=== PATIENT | female | born 1955 | race Caucasian/White ===

== ENCOUNTER 2022-11-16 11:10 | Emergency (ER) | payer MEDICARE | END 2022-11-16 19:00 | disposition other institution (70) | LOC: JD.ED 11:10 | DX: R45.851 Suicidal ideations (principal); R41.82 Altered mental status, unspecified; Z86.59 Personal history of other mental and behavioral disorders | CPT/HCPCS: 99285 ==

== ENCOUNTER 2022-11-17 11:54 | Emergency (ER) | payer MEDICARE ==
[2022-11-17 14:40] LABS: CORONAVIRUS COVID-19 NAA NEGATIVE (NEGATIVE)
[2022-11-17] MEDS ORDERED: OLANZapine 5 MG Tab PO SCH (21:00)
[2022-11-18] MEDS ORDERED: DULoxetine 20 MG Cap PO SCH (09:45)
== END 2022-11-18 19:50 ==
LOC: JD.ED 11:54
DX: F20.89 Other schizophrenia (principal); Z20.822 Contact with and (suspected) exposure to COVID-19
CPT/HCPCS: 0241U; 36415; 80053; 80143; 80179; 80306; 80307; 84443; 85025; 93005; 99285; A9270; 99283

== ENCOUNTER 2022-11-21 08:32 | Inpatient (IN) | payer MEDICARE, MEDICAID ==
[2022-11-21] MEDS ORDERED: OLANZapine 10 MG Vial IM ONE ×2 (09:22→19:03)
[2022-11-21] MEDS ORDERED: LORazepam 2 MG/ML SDV IM ONE ×2 (09:22→19:04)
[2022-11-21 10:11] LABS: BASOPHILS ABSOLUTE AUTO 0.02 K/mm3 (0.01-0.08); BASOPHILS PERCENT AUTO 0.3 % (0.1-1.2); EOSINOPHILS ABSOLUTE AUTO 0.11 K/mm3 (0.04-0.36); EOSINOPHILS PERCENT AUTO 1.6 (0.7-5.8); HEMATOCRIT 42.7 % (34.1-44.9); HEMOGLOBIN 14.1 gm/dl (11.2-15.7); IMMATURE GRAN ABSOLUTE AUTO 0.02 K/mm3 (0.00-0.10); IMMATURE GRAN PERCENT AUTO 0.3 % (<=1.0); LYMPHOCYTES ABSOLUTE AUTO 1.77 K/mm3 (1.18-3.74); LYMPHOCYTES PERCENT AUTO 25.4 % (19.3-51.7); MEAN CORPUSCULAR HEMOGLOBIN 29.5 pg (25.6-32.2); MEAN CORPUSCULAR VOLUME 89.3 fl (79.4-94.8); MEAN PLATELET VOLUME 9.6 fl (9.4-12.3); MONOCYTES ABSOLUTE AUTO 0.76 K/mm3 (0.24-0.36); MONOCYTES PERCENT AUTO 10.9 % (4.7-12.5); NEUTROPHILS PERCENT AUTO 61.5 % (34.0-71.1); PLATELET COUNT,PLT 340 K/mm3 (182-369); RED BLOOD CELL COUNT 4.78 M/mm3 (3.98-5.22); WHITE BLOOD CELL COUNT,WBC 6.98 K/mm3 (3.98-10.04)
[2022-11-21 10:36] LABS: A/G RATIO 1.1 (1-2); ALANINE AMINOTRANSFERASE,ALT 28 U/L (14-59); ALBUMIN 3.5 g/dl (3.4-5.0); ALKALINE PHOSPHATASE 87 U/L (46-116); ANION GAP 13.3 (5-15); ASPARTATE AMNIOTRANSFERASE,AST 19 U/L (15-37); BILIRUBIN TOTAL 1.5 mg/dL (0.2-1.0); BLOOD UREA NITROGEN,BUN 22 mg/dL (7-18); C-REACTIVE PROTEIN <0.2 mg/dL (<1.0); CALCIUM 8.4 mg/dL (8.5-10.1); CARBON DIOXIDE,CO2 28 mEq/L (21-32); CHLORIDE,CL 104 mEq/L (98-107); ESTIMATED GFR 61 mL/min (>60); GLUCOSE RANDOM 109 mg/dL (70-99); MAGNESIUM 1.9 mg/dL (1.8-2.4); POTASSIUM,K 3.3 mEq/L (3.5-5.1); PROTEIN TOTAL,TP 6.7 g/dl (6.4-8.2); SODIUM,NA 142 mEq/L (136-145); TROPONIN I HIGH SENSITIVITY 14 pg/mL (<=51); TSH 2.649 uIU/mL (0.358-3.74)
[2022-11-21 10:38] LABS: ACETAMINOPHEN 0 ug/mL (10-30)
[2022-11-21 14:07] LABS: APPEARANCE,URINE CLEAR (Clear); BILIRUBIN,URINE NEGATIVE (Negative); COLOR,URINE YELLOW (Yellow); GLUCOSE,URINE NEGATIVE (Negative); KETONES,URINE NEGATIVE (Negative); LEUKOCYTE ESTERASE,URINE TRACE (Negative); NITRITE,URINE NEGATIVE (Negative); OCCULT BLOOD,URINE NEGATIVE (Negative); PROTEIN,URINE 1+ (Negative); UROBILINOGEN,URINE 0.2 (0.2-1.0)
[2022-11-21 14:19] LABS: BARBITURATE SCREEN,URINE NEGATIVE (CUTOFF=200); BENZODIAZEPINES SCREEN,URINE NEGATIVE (CUTOFF=150); BUPRENORPHINE SCREEN,URINE NEGATIVE (CUTOFF=10); METHADONE SCREEN, URINE NEGATIVE (CUTOFF=200); METHAMPHETAMINES SCREEN, URINE NEGATIVE (CUTOFF=500); OXYCODONE SCREEN,URINE NEGATIVE (CUT0FF=100); PROPOXYPHENE SCREEN,URINE NEGATIVE (CUTOFF=300); THC SCREEN,URINE 20 NG/ML NEGATIVE (CUTOFF=50)
[2022-11-21 14:22] LABS: BACTERIA,URINE MODERATE /hpf (FEW); HYALINE CASTS,URINE 0-5 /lpf (0-5); MUCUS,URINE MANY /hpf (FEW); RBC,URINE NOT SEEN /hpf (0-5); SQUAMOUS EPITHELIAL CELLS,UR 0-5 /hpf (0-5)
[2022-11-21 14:23] LABS: AMPHETAMINES SCREEN, URINE NEGATIVE (CUTOFF=500)
[2022-11-21] MEDS ORDERED: Cephalexin 500 MG Cap PO ONE (16:15)
[2022-11-22] MEDS: OLANZapine 5 MG Tab PO SCH ×3 (07:58→20:53)
[2022-11-22 09:08] LABS: CORONAVIRUS COVID-19 NAA NEGATIVE (NEGATIVE); INFLUENZA A NAA NEGATIVE (NEGATIVE); RESPIRATORY SYNCYTIAL VIR NAA NEGATIVE (NEGATIVE)
[2022-11-22] MEDS: ARIPiprazole 5 MG Tab PO SCH (09:35)
[2022-11-22] MEDS ORDERED: LORazepam 2 MG/ML SDV IV PRN (15:39)
[2022-11-22] MEDS ORDERED: Sodium Chloride 0.9% 10 ML Syringe FLUSH PRN (15:39)
[2022-11-22] MEDS ORDERED: Cephalexin 500 MG Cap PO SCH (18:00)
[2022-11-22] MEDS: Heparin Sodium 5,000 Units/ML Vial SUBCUT SCH (19:00)
[2022-11-22] MEDS ORDERED: OLANZapine 5 MG Tab PO SCH (21:00)
[2022-11-23] MEDS: Heparin Sodium 5,000 Units/ML Vial SUBCUT SCH ×3 (01:18→16:59)
[2022-11-23 06:39] LABS: BASOPHILS ABSOLUTE AUTO 0.03 K/mm3 (0.01-0.08); BASOPHILS PERCENT AUTO 0.4 % (0.1-1.2); EOSINOPHILS ABSOLUTE AUTO 0.17 K/mm3 (0.04-0.36); EOSINOPHILS PERCENT AUTO 2.3 (0.7-5.8); HEMATOCRIT 44.3 % (34.1-44.9); HEMOGLOBIN 14.9 gm/dl (11.2-15.7); IMMATURE GRAN ABSOLUTE AUTO 0.01 K/mm3 (0.00-0.10); IMMATURE GRAN PERCENT AUTO 0.1 % (<=1.0); LYMPHOCYTES ABSOLUTE AUTO 2.68 K/mm3 (1.18-3.74); LYMPHOCYTES PERCENT AUTO 36.4 % (19.3-51.7); MEAN CORPUSCULAR HEMOGLOBIN 30.1 pg (25.6-32.2); MEAN CORPUSCULAR HGB CONC 33.6 g/dl (32.2-35.5); MEAN CORPUSCULAR VOLUME 89.5 fl (79.4-94.8); MEAN PLATELET VOLUME 9.5 fl (9.4-12.3); MONOCYTES ABSOLUTE AUTO 0.85 K/mm3 (0.24-0.36); MONOCYTES PERCENT AUTO 11.5 % (4.7-12.5); NEUTROPHILS ABSOLUTE AUTO 3.62 K/mm3 (1.56-6.13); NEUTROPHILS PERCENT AUTO 49.3 % (34.0-71.1); PLATELET COUNT,PLT 350 K/mm3 (182-369); RED BLOOD CELL COUNT 4.95 M/mm3 (3.98-5.22); WHITE BLOOD CELL COUNT,WBC 7.36 K/mm3 (3.98-10.04)
[2022-11-23 07:20] LABS: ALBUMIN 3.4 g/dl (3.4-5.0); ANION GAP 13.7 (5-15); BILIRUBIN TOTAL 1.4 mg/dL (0.2-1.0); BUN/CREATININE RATIO 18.9 (14-18); CALCIUM 8.6 mg/dL (8.5-10.1); CREATININE 0.9 mg/dL (0.55-1.02); EST CRCL DRUG DOSING (CG) 47.32 mL/min; POTASSIUM,K 3.7 mEq/L (3.5-5.1); PROTEIN TOTAL,TP 6.7 g/dl (6.4-8.2)
[2022-11-23] MEDS: DULoxetine 30 MG Cap PO SCH (11:56)
[2022-11-23] MEDS: OLANZapine 5 MG Tab PO SCH ×2 (11:57→20:10)
[2022-11-23] MEDS: Cephalexin 500 MG Cap PO SCH ×4 (11:57→20:10)
[2022-11-23] MEDS: ARIPiprazole 5 MG Tab PO SCH (11:57)
[2022-11-24] MEDS: Heparin Sodium 5,000 Units/ML Vial SUBCUT SCH ×3 (00:26→16:09)
[2022-11-24 06:19] LABS: BASOPHILS ABSOLUTE AUTO 0.03 K/mm3 (0.01-0.08); BASOPHILS PERCENT AUTO 0.4 % (0.1-1.2); EOSINOPHILS PERCENT AUTO 1.5 (0.7-5.8); HEMATOCRIT 44.8 % (34.1-44.9); IMMATURE GRAN ABSOLUTE AUTO 0.02 K/mm3 (0.00-0.10); IMMATURE GRAN PERCENT AUTO 0.3 % (<=1.0); LYMPHOCYTES ABSOLUTE AUTO 2.44 K/mm3 (1.18-3.74); LYMPHOCYTES PERCENT AUTO 36.4 % (19.3-51.7); MEAN CORPUSCULAR HEMOGLOBIN 29.9 pg (25.6-32.2); MEAN CORPUSCULAR HGB CONC 33.5 g/dl (32.2-35.5); MEAN CORPUSCULAR VOLUME 89.2 fl (79.4-94.8); MEAN PLATELET VOLUME 9.6 fl (9.4-12.3); MONOCYTES ABSOLUTE AUTO 0.78 K/mm3 (0.24-0.36); MONOCYTES PERCENT AUTO 11.6 % (4.7-12.5); NEUTROPHILS ABSOLUTE AUTO 3.34 K/mm3 (1.56-6.13); NEUTROPHILS PERCENT AUTO 49.8 % (34.0-71.1); PLATELET COUNT,PLT 364 K/mm3 (182-369); RED BLOOD CELL COUNT 5.02 M/mm3 (3.98-5.22); WHITE BLOOD CELL COUNT,WBC 6.71 K/mm3 (3.98-10.04)
[2022-11-24 06:38] LABS: ANION GAP 12.8 (5-15); BUN/CREATININE RATIO 21.1 (14-18); CALCIUM 8.7 mg/dL (8.5-10.1); CREATININE 0.9 mg/dL (0.55-1.02); EST CRCL DRUG DOSING (CG) 47.32 mL/min; POTASSIUM,K 3.8 mEq/L (3.5-5.1)
[2022-11-24] MEDS: LORazepam 1 MG Tab PO PRN ×2 (07:43→16:19)
[2022-11-24] MEDS: ARIPiprazole 5 MG Tab PO SCH ×2 (07:43→08:13)
[2022-11-24] MEDS: DULoxetine 30 MG Cap PO SCH ×2 (07:43→08:13)
[2022-11-24] MEDS: Cephalexin 500 MG Cap PO SCH ×5 (07:43→20:40)
[2022-11-24] MEDS: OLANZapine 5 MG Tab PO SCH ×3 (07:43→20:40)
[2022-11-25] MEDS: Heparin Sodium 5,000 Units/ML Vial SUBCUT SCH ×3 (00:48→18:23)
[2022-11-25] MEDS: DULoxetine 30 MG Cap PO SCH (08:17)
[2022-11-25] MEDS: OLANZapine 5 MG Tab PO SCH ×2 (08:18→20:47)
[2022-11-25] MEDS: ARIPiprazole 5 MG Tab PO SCH (08:18)
[2022-11-25] MEDS: Cephalexin 500 MG Cap PO SCH ×2 (08:18→12:36)
[2022-11-26] MEDS: Heparin Sodium 5,000 Units/ML Vial SUBCUT SCH ×3 (00:52→16:12)
[2022-11-26] MEDS: ARIPiprazole 5 MG Tab PO SCH (08:16)
[2022-11-26] MEDS: OLANZapine 5 MG Tab PO SCH ×2 (08:16→20:18)
[2022-11-26] MEDS: DULoxetine 30 MG Cap PO SCH (08:16)
[2022-11-26] MEDS: Docusate Sodium 100 MG Cap PO SCH (20:18)
[2022-11-27] MEDS: Heparin Sodium 5,000 Units/ML Vial SUBCUT SCH ×3 (01:30→16:05)
[2022-11-27] MEDS: DULoxetine 30 MG Cap PO SCH (08:48)
[2022-11-27] MEDS: ARIPiprazole 5 MG Tab PO SCH (08:48)
[2022-11-27] MEDS: Docusate Sodium 100 MG Cap PO SCH ×3 (08:48→20:25)
[2022-11-27] MEDS: OLANZapine 5 MG Tab PO SCH ×3 (08:48→20:28)
[2022-11-28] MEDS: Heparin Sodium 5,000 Units/ML Vial SUBCUT SCH ×3 (01:13→16:07)
[2022-11-28] MEDS: ARIPiprazole 5 MG Tab PO SCH (08:02)
[2022-11-28] MEDS: OLANZapine 5 MG Tab PO SCH ×2 (08:02→20:47)
[2022-11-28] MEDS: DULoxetine 30 MG Cap PO SCH (08:02)
[2022-11-28] MEDS: Docusate Sodium 100 MG Cap PO SCH ×2 (08:03→20:47)
[2022-11-29] MEDS: Heparin Sodium 5,000 Units/ML Vial SUBCUT SCH ×4 (00:54→23:08)
[2022-11-29] MEDS: ARIPiprazole 5 MG Tab PO SCH (07:59)
[2022-11-29] MEDS: Docusate Sodium 100 MG Cap PO SCH ×2 (07:59→20:19)
[2022-11-29] MEDS: OLANZapine 5 MG Tab PO SCH ×2 (07:59→20:19)
[2022-11-29] MEDS: DULoxetine 30 MG Cap PO SCH (07:59)
[2022-11-29] MEDS: LORazepam 1 MG Tab PO PRN (11:27)
[2022-11-30] MEDS: Heparin Sodium 5,000 Units/ML Vial SUBCUT SCH ×3 (08:49→23:34)
[2022-11-30] MEDS: Docusate Sodium 100 MG Cap PO SCH ×2 (08:49→20:04)
[2022-11-30] MEDS: DULoxetine 30 MG Cap PO SCH (08:49)
[2022-11-30] MEDS: ARIPiprazole 5 MG Tab PO SCH (08:49)
[2022-11-30] MEDS: OLANZapine 5 MG Tab PO SCH ×2 (08:49→20:04)
[2022-12-01] MEDS: ARIPiprazole 5 MG Tab PO SCH (08:13)
[2022-12-01] MEDS: Heparin Sodium 5,000 Units/ML Vial SUBCUT SCH ×2 (08:13→17:11)
[2022-12-01] MEDS: OLANZapine 5 MG Tab PO SCH ×2 (08:13→20:45)
[2022-12-01] MEDS: Docusate Sodium 100 MG Cap PO SCH ×2 (08:14→20:45)
[2022-12-01] MEDS: DULoxetine 30 MG Cap PO SCH (08:14)
[2022-12-01] MEDS: LORazepam 1 MG Tab PO PRN ×2 (13:34→20:45)
[2022-12-02] MEDS: Heparin Sodium 5,000 Units/ML Vial SUBCUT SCH ×3 (00:35→15:50)
[2022-12-02] MEDS: DULoxetine 30 MG Cap PO SCH (08:54)
[2022-12-02] MEDS: ARIPiprazole 5 MG Tab PO SCH (08:54)
[2022-12-02] MEDS: OLANZapine 5 MG Tab PO SCH ×2 (08:54→20:48)
[2022-12-02] MEDS: Docusate Sodium 100 MG Cap PO SCH ×2 (08:54→20:49)
[2022-12-02] MEDS: LORazepam 1 MG Tab PO PRN (09:00)
[2022-12-03] MEDS: Heparin Sodium 5,000 Units/ML Vial SUBCUT SCH ×4 (00:59→23:45)
[2022-12-03] MEDS: LORazepam 1 MG Tab PO PRN ×2 (07:39→16:22)
[2022-12-03] MEDS: DULoxetine 30 MG Cap PO SCH (09:07)
[2022-12-03] MEDS: Docusate Sodium 100 MG Cap PO SCH ×2 (09:08→20:29)
[2022-12-03] MEDS: OLANZapine 5 MG Tab PO SCH ×2 (09:08→20:30)
[2022-12-03] MEDS: ARIPiprazole 5 MG Tab PO SCH (09:08)
[2022-12-04] MEDS: LORazepam 1 MG Tab PO PRN ×2 (07:11→13:01)
[2022-12-04] MEDS: OLANZapine 5 MG Tab PO SCH ×2 (08:12→20:14)
[2022-12-04] MEDS: DULoxetine 30 MG Cap PO SCH (08:12)
[2022-12-04] MEDS: Docusate Sodium 100 MG Cap PO SCH ×2 (08:12→20:14)
[2022-12-04] MEDS: ARIPiprazole 5 MG Tab PO SCH (08:12)
[2022-12-05] MEDS: LORazepam 1 MG Tab PO PRN ×2 (06:43→20:26)
[2022-12-05] MEDS: ARIPiprazole 5 MG Tab PO SCH (09:29)
[2022-12-05] MEDS: OLANZapine 5 MG Tab PO SCH ×2 (09:29→20:26)
[2022-12-05] MEDS: Enoxaparin 40 MG/0.4 ML Syringe SUBCUT SCH (09:30)
[2022-12-05] MEDS: Docusate Sodium 100 MG Cap PO SCH ×2 (09:30→20:26)
[2022-12-05] MEDS: DULoxetine 30 MG Cap PO SCH (09:30)
[2022-12-06] MEDS: LORazepam 1 MG Tab PO PRN ×2 (08:14→20:05)
[2022-12-06] MEDS: DULoxetine 30 MG Cap PO SCH (08:31)
[2022-12-06] MEDS: Enoxaparin 40 MG/0.4 ML Syringe SUBCUT SCH (08:31)
[2022-12-06] MEDS: OLANZapine 5 MG Tab PO SCH ×2 (08:31→20:05)
[2022-12-06] MEDS: ARIPiprazole 5 MG Tab PO SCH (08:31)
[2022-12-06] MEDS: Docusate Sodium 100 MG Cap PO SCH ×2 (08:31→20:05)
[2022-12-07] MEDS: OLANZapine 5 MG Tab PO SCH ×2 (08:00→20:00)
[2022-12-07] MEDS: DULoxetine 30 MG Cap PO SCH (08:00)
[2022-12-07] MEDS: ARIPiprazole 5 MG Tab PO SCH (08:01)
[2022-12-07] MEDS: Docusate Sodium 100 MG Cap PO SCH ×2 (08:01→20:00)
[2022-12-07] MEDS: Enoxaparin 40 MG/0.4 ML Syringe SUBCUT SCH (08:01)
[2022-12-07] MEDS: LORazepam 1 MG Tab PO PRN (20:00)
[2022-12-08] MEDS: DULoxetine 30 MG Cap PO SCH (09:05)
[2022-12-08] MEDS: Enoxaparin 40 MG/0.4 ML Syringe SUBCUT SCH (09:05)
[2022-12-08] MEDS: ARIPiprazole 5 MG Tab PO SCH (09:05)
[2022-12-08] MEDS: OLANZapine 5 MG Tab PO SCH ×2 (09:05→20:00)
[2022-12-08] MEDS: Docusate Sodium 100 MG Cap PO SCH ×2 (09:05→20:00)
[2022-12-08] MEDS: LORazepam 1 MG Tab PO PRN (22:51)
[2022-12-09] MEDS: ARIPiprazole 5 MG Tab PO SCH ×2 (07:49→08:22)
[2022-12-09] MEDS: Docusate Sodium 100 MG Cap PO SCH ×3 (07:49→20:50)
[2022-12-09] MEDS: OLANZapine 5 MG Tab PO SCH ×3 (07:49→20:50)
[2022-12-09] MEDS: DULoxetine 30 MG Cap PO SCH ×2 (07:49→08:23)
[2022-12-09] MEDS: Enoxaparin 40 MG/0.4 ML Syringe SUBCUT SCH ×2 (07:49→08:23)
[2022-12-10] MEDS: Docusate Sodium 100 MG Cap PO SCH ×2 (08:37→22:08)
[2022-12-10] MEDS: OLANZapine 5 MG Tab PO SCH ×2 (08:37→22:08)
[2022-12-10] MEDS: LORazepam 1 MG Tab PO PRN (08:37)
[2022-12-10] MEDS: DULoxetine 30 MG Cap PO SCH (08:37)
[2022-12-10] MEDS: ARIPiprazole 5 MG Tab PO SCH (08:37)
[2022-12-10] MEDS: Enoxaparin 40 MG/0.4 ML Syringe SUBCUT SCH (08:38)
[2022-12-11] MEDS: LORazepam 1 MG Tab PO PRN ×2 (07:38→19:28)
[2022-12-11] MEDS: DULoxetine 30 MG Cap PO SCH (09:21)
[2022-12-11] MEDS: Docusate Sodium 100 MG Cap PO SCH ×2 (09:21→20:05)
[2022-12-11] MEDS: OLANZapine 5 MG Tab PO SCH ×2 (09:21→20:05)
[2022-12-11] MEDS: Enoxaparin 40 MG/0.4 ML Syringe SUBCUT SCH (09:21)
[2022-12-11] MEDS: ARIPiprazole 5 MG Tab PO SCH (09:22)
[2022-12-12] MEDS: Docusate Sodium 100 MG Cap PO SCH ×2 (08:54→20:45)
[2022-12-12] MEDS: LORazepam 1 MG Tab PO PRN ×2 (08:54→21:00)
[2022-12-12] MEDS: OLANZapine 5 MG Tab PO SCH ×2 (08:54→20:45)
[2022-12-12] MEDS: DULoxetine 30 MG Cap PO SCH (08:55)
[2022-12-12] MEDS: Enoxaparin 40 MG/0.4 ML Syringe SUBCUT SCH (08:55)
[2022-12-12] MEDS: ARIPiprazole 5 MG Tab PO SCH (08:55)
[2022-12-13] MEDS: Docusate Sodium 100 MG Cap PO SCH ×2 (08:33→21:20)
[2022-12-13] MEDS: OLANZapine 5 MG Tab PO SCH ×2 (08:33→21:20)
[2022-12-13] MEDS: DULoxetine 30 MG Cap PO SCH (08:33)
[2022-12-13] MEDS: ARIPiprazole 5 MG Tab PO SCH (08:34)
[2022-12-13] MEDS: Enoxaparin 40 MG/0.4 ML Syringe SUBCUT SCH (08:34)
[2022-12-13] MEDS: LORazepam 1 MG Tab PO PRN (21:20)
[2022-12-14] MEDS: DULoxetine 30 MG Cap PO SCH (08:12)
[2022-12-14] MEDS: Enoxaparin 40 MG/0.4 ML Syringe SUBCUT SCH (08:12)
[2022-12-14] MEDS: OLANZapine 5 MG Tab PO SCH ×2 (08:12→20:00)
[2022-12-14] MEDS: Docusate Sodium 100 MG Cap PO SCH ×2 (08:12→20:00)
[2022-12-14] MEDS: ARIPiprazole 5 MG Tab PO SCH (08:12)
[2022-12-15] MEDS: LORazepam 1 MG Tab PO PRN (07:03)
[2022-12-15] MEDS: DULoxetine 30 MG Cap PO SCH ×2 (07:52→08:04)
[2022-12-15] MEDS: Docusate Sodium 100 MG Cap PO SCH ×3 (07:52→20:36)
[2022-12-15] MEDS: ARIPiprazole 5 MG Tab PO SCH ×2 (07:52→08:04)
[2022-12-15] MEDS: Enoxaparin 40 MG/0.4 ML Syringe SUBCUT SCH ×2 (07:53→08:04)
[2022-12-15] MEDS: OLANZapine 5 MG Tab PO SCH ×3 (07:53→20:36)
[2022-12-16] MEDS: LORazepam 1 MG Tab PO PRN (06:22)
[2022-12-16] MEDS: DULoxetine 30 MG Cap PO SCH (09:31)
[2022-12-16] MEDS: ARIPiprazole 5 MG Tab PO SCH (09:31)
[2022-12-16] MEDS: OLANZapine 5 MG Tab PO SCH ×2 (09:31→20:03)
[2022-12-16] MEDS: Docusate Sodium 100 MG Cap PO SCH ×2 (09:31→20:03)
[2022-12-16] MEDS: Enoxaparin 40 MG/0.4 ML Syringe SUBCUT SCH (09:32)
[2022-12-17] MEDS: LORazepam 1 MG Tab PO PRN (06:50)
[2022-12-17] MEDS: DULoxetine 30 MG Cap PO SCH (08:32)
[2022-12-17] MEDS: Docusate Sodium 100 MG Cap PO SCH ×2 (08:32→20:05)
[2022-12-17] MEDS: OLANZapine 5 MG Tab PO SCH ×2 (08:34→20:05)
[2022-12-17] MEDS: ARIPiprazole 5 MG Tab PO SCH (08:34)
[2022-12-17] MEDS: Enoxaparin 40 MG/0.4 ML Syringe SUBCUT SCH (08:35)
[2022-12-18] MEDS: LORazepam 1 MG Tab PO PRN (05:28)
[2022-12-18] MEDS: Enoxaparin 40 MG/0.4 ML Syringe SUBCUT SCH (08:34)
[2022-12-18] MEDS: DULoxetine 30 MG Cap PO SCH (08:34)
[2022-12-18] MEDS: ARIPiprazole 5 MG Tab PO SCH (08:34)
[2022-12-18] MEDS: OLANZapine 5 MG Tab PO SCH ×2 (08:34→20:23)
[2022-12-18] MEDS: Docusate Sodium 100 MG Cap PO SCH ×2 (08:34→20:23)
[2022-12-19] MEDS: DULoxetine 30 MG Cap PO SCH (07:59)
[2022-12-19] MEDS: ARIPiprazole 5 MG Tab PO SCH (07:59)
[2022-12-19] MEDS: OLANZapine 5 MG Tab PO SCH ×2 (07:59→20:06)
[2022-12-19] MEDS: Docusate Sodium 100 MG Cap PO SCH ×2 (07:59→20:06)
[2022-12-19] MEDS: Enoxaparin 40 MG/0.4 ML Syringe SUBCUT SCH (07:59)
[2022-12-19] MEDS ORDERED: LORazepam 1 MG Tab PO ONE (10:00)
[2022-12-20] MEDS: LORazepam 1 MG Tab PO PRN (05:37)
[2022-12-20] MEDS: OLANZapine 5 MG Tab PO SCH ×2 (08:31→21:08)
[2022-12-20] MEDS: Enoxaparin 40 MG/0.4 ML Syringe SUBCUT SCH (08:31)
[2022-12-20] MEDS: ARIPiprazole 5 MG Tab PO SCH (08:31)
[2022-12-20] MEDS: DULoxetine 30 MG Cap PO SCH (08:31)
[2022-12-20] MEDS: Docusate Sodium 100 MG Cap PO SCH ×2 (08:31→21:08)
[2022-12-21] MEDS: LORazepam 1 MG Tab PO PRN (05:54)
[2022-12-21] MEDS: DULoxetine 30 MG Cap PO SCH (08:12)
[2022-12-21] MEDS: ARIPiprazole 5 MG Tab PO SCH (08:12)
[2022-12-21] MEDS: OLANZapine 5 MG Tab PO SCH ×2 (08:12→20:17)
[2022-12-21] MEDS: Docusate Sodium 100 MG Cap PO SCH ×2 (08:12→20:17)
[2022-12-21] MEDS: Enoxaparin 40 MG/0.4 ML Syringe SUBCUT SCH (08:12)
[2022-12-22] MEDS: LORazepam 1 MG Tab PO PRN (07:59)
[2022-12-22] MEDS: Enoxaparin 40 MG/0.4 ML Syringe SUBCUT SCH (07:59)
[2022-12-22] MEDS: DULoxetine 30 MG Cap PO SCH (07:59)
[2022-12-22] MEDS: Docusate Sodium 100 MG Cap PO SCH ×2 (08:00→20:03)
[2022-12-22] MEDS: OLANZapine 5 MG Tab PO SCH ×2 (08:00→20:03)
[2022-12-22] MEDS: ARIPiprazole 5 MG Tab PO SCH (08:00)
[2022-12-23] MEDS: ARIPiprazole 5 MG Tab PO SCH (08:17)
[2022-12-23] MEDS: DULoxetine 30 MG Cap PO SCH (08:17)
[2022-12-23] MEDS: OLANZapine 5 MG Tab PO SCH ×2 (08:17→21:52)
[2022-12-23] MEDS: Enoxaparin 40 MG/0.4 ML Syringe SUBCUT SCH (08:17)
[2022-12-23] MEDS: Docusate Sodium 100 MG Cap PO SCH ×2 (08:17→21:52)
[2022-12-23] MEDS: LORazepam 1 MG Tab PO PRN (14:20)
[2022-12-24] MEDS: Docusate Sodium 100 MG Cap PO SCH ×3 (07:12→20:22)
[2022-12-24] MEDS: OLANZapine 5 MG Tab PO SCH ×3 (07:12→20:22)
[2022-12-24] MEDS: LORazepam 1 MG Tab PO PRN ×2 (07:12→20:22)
[2022-12-24] MEDS: ARIPiprazole 5 MG Tab PO SCH ×2 (07:12→08:02)
[2022-12-24] MEDS: DULoxetine 30 MG Cap PO SCH ×2 (07:13→08:02)
[2022-12-24] MEDS: Enoxaparin 40 MG/0.4 ML Syringe SUBCUT SCH (08:02)
[2022-12-25] MEDS: Enoxaparin 40 MG/0.4 ML Syringe SUBCUT SCH (09:42)
[2022-12-25] MEDS: DULoxetine 30 MG Cap PO SCH (09:42)
[2022-12-25] MEDS: Docusate Sodium 100 MG Cap PO SCH ×2 (09:43→20:40)
[2022-12-25] MEDS: ARIPiprazole 5 MG Tab PO SCH (09:43)
[2022-12-25] MEDS: OLANZapine 5 MG Tab PO SCH ×2 (09:43→20:40)
[2022-12-25] MEDS: LORazepam 1 MG Tab PO PRN (11:34)
[2022-12-26] MEDS: Enoxaparin 40 MG/0.4 ML Syringe SUBCUT SCH (08:15)
[2022-12-26] MEDS: ARIPiprazole 5 MG Tab PO SCH (08:15)
[2022-12-26] MEDS: OLANZapine 5 MG Tab PO SCH ×2 (08:15→20:09)
[2022-12-26] MEDS: LORazepam 1 MG Tab PO PRN (08:15)
[2022-12-26] MEDS: DULoxetine 30 MG Cap PO SCH (08:15)
[2022-12-26] MEDS: Docusate Sodium 100 MG Cap PO SCH ×2 (08:15→20:09)
[2022-12-27] MEDS: Enoxaparin 40 MG/0.4 ML Syringe SUBCUT SCH (08:11)
[2022-12-27] MEDS: Docusate Sodium 100 MG Cap PO SCH ×2 (08:11→20:37)
[2022-12-27] MEDS: DULoxetine 30 MG Cap PO SCH (08:11)
[2022-12-27] MEDS: ARIPiprazole 5 MG Tab PO SCH (08:11)
[2022-12-27] MEDS: OLANZapine 5 MG Tab PO SCH ×2 (08:11→20:37)
[2022-12-27] MEDS: LORazepam 1 MG Tab PO PRN (17:07)
[2022-12-28] MEDS: Docusate Sodium 100 MG Cap PO SCH ×2 (08:36→20:03)
[2022-12-28] MEDS: DULoxetine 30 MG Cap PO SCH (08:36)
[2022-12-28] MEDS: Enoxaparin 40 MG/0.4 ML Syringe SUBCUT SCH (08:36)
[2022-12-28] MEDS: LORazepam 1 MG Tab PO PRN (08:36)
[2022-12-28] MEDS: OLANZapine 5 MG Tab PO SCH ×2 (08:36→20:03)
[2022-12-28] MEDS: ARIPiprazole 5 MG Tab PO SCH (08:36)
[2022-12-29] MEDS: Docusate Sodium 100 MG Cap PO SCH ×3 (07:33→20:06)
[2022-12-29] MEDS: OLANZapine 5 MG Tab PO SCH ×3 (07:33→20:06)
[2022-12-29] MEDS: Enoxaparin 40 MG/0.4 ML Syringe SUBCUT SCH ×2 (07:33→08:44)
[2022-12-29] MEDS: LORazepam 1 MG Tab PO PRN (07:33)
[2022-12-29] MEDS: ARIPiprazole 5 MG Tab PO SCH ×2 (07:33→08:44)
[2022-12-29] MEDS: DULoxetine 30 MG Cap PO SCH ×2 (07:34→08:44)
[2022-12-30] MEDS: ARIPiprazole 5 MG Tab PO SCH (08:16)
[2022-12-30] MEDS: OLANZapine 5 MG Tab PO SCH ×2 (08:16→20:28)
[2022-12-30] MEDS: LORazepam 1 MG Tab PO PRN (08:17)
[2022-12-30] MEDS: Docusate Sodium 100 MG Cap PO SCH ×2 (08:18→20:28)
[2022-12-30] MEDS: DULoxetine 30 MG Cap PO SCH (08:18)
[2022-12-30] MEDS: Enoxaparin 40 MG/0.4 ML Syringe SUBCUT SCH (08:19)
[2022-12-31] MEDS: Docusate Sodium 100 MG Cap PO SCH ×2 (09:51→20:19)
[2022-12-31] MEDS: DULoxetine 30 MG Cap PO SCH (09:51)
[2022-12-31] MEDS: LORazepam 1 MG Tab PO PRN (09:51)
[2022-12-31] MEDS: Enoxaparin 40 MG/0.4 ML Syringe SUBCUT SCH (09:52)
[2022-12-31] MEDS: OLANZapine 5 MG Tab PO SCH ×2 (09:52→20:18)
[2022-12-31] MEDS: ARIPiprazole 5 MG Tab PO SCH (09:52)
[2023-01-01] MEDS: OLANZapine 5 MG Tab PO SCH ×3 (07:42→21:23)
[2023-01-01] MEDS: Enoxaparin 40 MG/0.4 ML Syringe SUBCUT SCH ×2 (07:42→08:29)
[2023-01-01] MEDS: DULoxetine 30 MG Cap PO SCH ×2 (07:42→08:29)
[2023-01-01] MEDS: Docusate Sodium 100 MG Cap PO SCH ×3 (07:42→21:23)
[2023-01-01] MEDS: ARIPiprazole 5 MG Tab PO SCH ×2 (07:43→08:28)
[2023-01-01] MEDS: LORazepam 1 MG Tab PO PRN (15:40)
[2023-01-02] MEDS: DULoxetine 30 MG Cap PO SCH (10:14)
[2023-01-02] MEDS: Enoxaparin 40 MG/0.4 ML Syringe SUBCUT SCH (10:14)
[2023-01-02] MEDS: OLANZapine 5 MG Tab PO SCH ×2 (10:15→20:05)
[2023-01-02] MEDS: Docusate Sodium 100 MG Cap PO SCH ×2 (10:15→20:05)
[2023-01-02] MEDS: ARIPiprazole 5 MG Tab PO SCH (10:17)
[2023-01-03] MEDS: Docusate Sodium 100 MG Cap PO SCH ×2 (08:32→20:11)
[2023-01-03] MEDS: Enoxaparin 40 MG/0.4 ML Syringe SUBCUT SCH (08:32)
[2023-01-03] MEDS: OLANZapine 5 MG Tab PO SCH ×2 (08:33→20:11)
[2023-01-03] MEDS: ARIPiprazole 5 MG Tab PO SCH (08:33)
[2023-01-03] MEDS: DULoxetine 30 MG Cap PO SCH (08:33)
[2023-01-04] MEDS: DULoxetine 30 MG Cap PO SCH (07:59)
[2023-01-04] MEDS: ARIPiprazole 5 MG Tab PO SCH (07:59)
[2023-01-04] MEDS: Docusate Sodium 100 MG Cap PO SCH ×2 (07:59→20:45)
[2023-01-04] MEDS: Enoxaparin 40 MG/0.4 ML Syringe SUBCUT SCH (07:59)
[2023-01-04] MEDS: OLANZapine 5 MG Tab PO SCH ×2 (08:00→20:45)
[2023-01-04] MEDS: LORazepam 1 MG Tab PO PRN (23:59)
[2023-01-05] MEDS: ARIPiprazole 5 MG Tab PO SCH (08:56)
[2023-01-05] MEDS: DULoxetine 30 MG Cap PO SCH (08:56)
[2023-01-05] MEDS: Docusate Sodium 100 MG Cap PO SCH ×2 (08:56→20:09)
[2023-01-05] MEDS: OLANZapine 5 MG Tab PO SCH ×2 (08:56→20:09)
[2023-01-05] MEDS: Enoxaparin 40 MG/0.4 ML Syringe SUBCUT SCH (08:57)
[2023-01-06] MEDS: OLANZapine 5 MG Tab PO SCH ×2 (08:24→21:41)
[2023-01-06] MEDS: Docusate Sodium 100 MG Cap PO SCH ×2 (08:25→21:41)
[2023-01-06] MEDS: DULoxetine 30 MG Cap PO SCH (08:25)
[2023-01-06] MEDS: LORazepam 1 MG Tab PO PRN (08:25)
[2023-01-06] MEDS: Enoxaparin 40 MG/0.4 ML Syringe SUBCUT SCH (08:26)
[2023-01-06] MEDS: ARIPiprazole 5 MG Tab PO SCH (08:26)
[2023-01-07] MEDS: DULoxetine 30 MG Cap PO SCH (08:15)
[2023-01-07] MEDS: OLANZapine 5 MG Tab PO SCH ×2 (08:15→21:23)
[2023-01-07] MEDS: ARIPiprazole 5 MG Tab PO SCH (08:16)
[2023-01-07] MEDS: Enoxaparin 40 MG/0.4 ML Syringe SUBCUT SCH (08:16)
[2023-01-07] MEDS: LORazepam 1 MG Tab PO PRN (08:16)
[2023-01-07] MEDS: Docusate Sodium 100 MG Cap PO SCH ×2 (08:16→21:23)
[2023-01-08] MEDS: Enoxaparin 40 MG/0.4 ML Syringe SUBCUT SCH (08:22)
[2023-01-08] MEDS: ARIPiprazole 5 MG Tab PO SCH (08:23)
[2023-01-08] MEDS: LORazepam 1 MG Tab PO PRN ×2 (08:23→22:27)
[2023-01-08] MEDS: Docusate Sodium 100 MG Cap PO SCH ×2 (08:23→20:12)
[2023-01-08] MEDS: DULoxetine 30 MG Cap PO SCH (08:24)
[2023-01-08] MEDS: OLANZapine 5 MG Tab PO SCH ×2 (08:24→20:12)
[2023-01-09] MEDS: Enoxaparin 40 MG/0.4 ML Syringe SUBCUT SCH (09:11)
[2023-01-09] MEDS: ARIPiprazole 5 MG Tab PO SCH (09:11)
[2023-01-09] MEDS: Docusate Sodium 100 MG Cap PO SCH ×2 (09:11→20:20)
[2023-01-09] MEDS: DULoxetine 30 MG Cap PO SCH (09:11)
[2023-01-09] MEDS: OLANZapine 5 MG Tab PO SCH ×2 (09:11→20:19)
[2023-01-09] MEDS: LORazepam 1 MG Tab PO PRN (20:19)
[2023-01-10] MEDS: Enoxaparin 40 MG/0.4 ML Syringe SUBCUT SCH (09:03)
[2023-01-10] MEDS: OLANZapine 5 MG Tab PO SCH ×2 (09:04→20:35)
[2023-01-10] MEDS: ARIPiprazole 5 MG Tab PO SCH (09:04)
[2023-01-10] MEDS: Docusate Sodium 100 MG Cap PO SCH ×2 (09:04→20:36)
[2023-01-10] MEDS: DULoxetine 30 MG Cap PO SCH (09:04)
[2023-01-10] MEDS: Nystatin Topical Powder 15 GM Bottle TOP SCH ×3 (13:44→20:36)
[2023-01-11] MEDS: OLANZapine 5 MG Tab PO SCH ×2 (08:34→20:52)
[2023-01-11] MEDS: Enoxaparin 40 MG/0.4 ML Syringe SUBCUT SCH (08:34)
[2023-01-11] MEDS: Docusate Sodium 100 MG Cap PO SCH ×2 (08:34→20:52)
[2023-01-11] MEDS: Nystatin Topical Powder 15 GM Bottle TOP SCH ×3 (08:34→20:55)
[2023-01-11] MEDS: ARIPiprazole 5 MG Tab PO SCH (08:34)
[2023-01-11] MEDS: DULoxetine 30 MG Cap PO SCH (08:34)
[2023-01-11] MEDS: LORazepam 1 MG Tab PO PRN (12:21)
[2023-01-12] MEDS: DULoxetine 30 MG Cap PO SCH (09:20)
[2023-01-12] MEDS: Docusate Sodium 100 MG Cap PO SCH ×2 (09:20→20:20)
[2023-01-12] MEDS: Enoxaparin 40 MG/0.4 ML Syringe SUBCUT SCH (09:21)
[2023-01-12] MEDS: Nystatin Topical Powder 15 GM Bottle TOP SCH ×3 (09:21→20:22)
[2023-01-12] MEDS: OLANZapine 5 MG Tab PO SCH ×2 (09:23→20:20)
[2023-01-12] MEDS: LORazepam 1 MG Tab PO PRN ×2 (12:04→20:20)
[2023-01-13] MEDS: OLANZapine 5 MG Tab PO SCH ×2 (09:20→20:32)
[2023-01-13] MEDS: LORazepam 1 MG Tab PO PRN ×2 (09:21→20:32)
[2023-01-13] MEDS: Docusate Sodium 100 MG Cap PO SCH ×2 (09:21→20:32)
[2023-01-13] MEDS: Enoxaparin 40 MG/0.4 ML Syringe SUBCUT SCH (09:22)
[2023-01-13] MEDS: Nystatin Topical Powder 15 GM Bottle TOP SCH ×4 (09:22→21:00)
[2023-01-13] MEDS: DULoxetine 30 MG Cap PO SCH (09:22)
[2023-01-14] MEDS: DULoxetine 30 MG Cap PO SCH (08:40)
[2023-01-14] MEDS: OLANZapine 5 MG Tab PO SCH ×2 (08:41→22:05)
[2023-01-14] MEDS: Nystatin Topical Powder 15 GM Bottle TOP SCH ×3 (08:42→22:36)
[2023-01-14] MEDS: Enoxaparin 40 MG/0.4 ML Syringe SUBCUT SCH (08:42)
[2023-01-14] MEDS: Docusate Sodium 100 MG Cap PO SCH ×2 (08:42→22:04)
[2023-01-14] MEDS: LORazepam 1 MG Tab PO PRN ×2 (10:50→22:06)
[2023-01-15] MEDS: Enoxaparin 40 MG/0.4 ML Syringe SUBCUT SCH (09:32)
[2023-01-15] MEDS: DULoxetine 30 MG Cap PO SCH (09:33)
[2023-01-15] MEDS: OLANZapine 5 MG Tab PO SCH ×2 (09:33→20:36)
[2023-01-15] MEDS: Docusate Sodium 100 MG Cap PO SCH ×2 (09:35→20:36)
[2023-01-15] MEDS: Nystatin Topical Powder 15 GM Bottle TOP SCH ×3 (09:36→20:42)
[2023-01-15] MEDS: LORazepam 1 MG Tab PO PRN (22:04)
[2023-01-16] MEDS: Enoxaparin 40 MG/0.4 ML Syringe SUBCUT SCH (08:08)
[2023-01-16] MEDS: DULoxetine 30 MG Cap PO SCH (08:09)
[2023-01-16] MEDS: OLANZapine 5 MG Tab PO SCH ×2 (08:09→20:02)
[2023-01-16] MEDS: Nystatin Topical Powder 15 GM Bottle TOP SCH ×3 (08:10→20:04)
[2023-01-16] MEDS: LORazepam 1 MG Tab PO PRN ×2 (08:10→20:03)
[2023-01-16] MEDS: Docusate Sodium 100 MG Cap PO SCH ×2 (08:10→20:03)
[2023-01-17] MEDS: OLANZapine 5 MG Tab PO SCH ×2 (08:43→20:11)
[2023-01-17] MEDS: Docusate Sodium 100 MG Cap PO SCH ×2 (08:43→20:10)
[2023-01-17] MEDS: Nystatin Topical Powder 15 GM Bottle TOP SCH ×3 (08:44→20:10)
[2023-01-17] MEDS: DULoxetine 30 MG Cap PO SCH (08:44)
[2023-01-17] MEDS: Enoxaparin 40 MG/0.4 ML Syringe SUBCUT SCH (08:45)
[2023-01-17] MEDS: LORazepam 1 MG Tab PO PRN (14:18)
[2023-01-18] MEDS: Enoxaparin 40 MG/0.4 ML Syringe SUBCUT SCH (09:01)
[2023-01-18] MEDS: DULoxetine 30 MG Cap PO SCH (09:02)
[2023-01-18] MEDS: Docusate Sodium 100 MG Cap PO SCH ×2 (09:02→21:32)
[2023-01-18] MEDS: Nystatin Topical Powder 15 GM Bottle TOP SCH ×3 (10:27→21:31)
[2023-01-18] MEDS: OLANZapine 5 MG Tab PO SCH ×2 (10:28→21:32)
[2023-01-18] MEDS: LORazepam 1 MG Tab PO PRN (21:32)
[2023-01-19] MEDS: DULoxetine 30 MG Cap PO SCH (11:40)
[2023-01-19] MEDS: OLANZapine 5 MG Tab PO SCH ×2 (11:40→20:03)
[2023-01-19] MEDS: Enoxaparin 40 MG/0.4 ML Syringe SUBCUT SCH (11:41)
[2023-01-19] MEDS: Docusate Sodium 100 MG Cap PO SCH ×2 (11:41→20:04)
[2023-01-19] MEDS: Nystatin Topical Powder 15 GM Bottle TOP SCH ×3 (11:41→20:04)
[2023-01-19] MEDS: Benzocaine/Cetylpyridinium/Menthol Lozenge MUCMEM PRN (20:02)
[2023-01-19] MEDS: guaiFENesin/Dextromethorphan 100-10 MG/5 ML Soln 5 ML Cup PO PRN (20:03)
[2023-01-19] MEDS: LORazepam 1 MG Tab PO PRN (20:04)
[2023-01-20 09:22] LABS: BASOPHILS ABSOLUTE AUTO 0.03 K/mm3 (0.01-0.08); BASOPHILS PERCENT AUTO 0.4 % (0.1-1.2); EOSINOPHILS ABSOLUTE AUTO 0.01 K/mm3 (0.04-0.36); EOSINOPHILS PERCENT AUTO 0.1 (0.7-5.8); IMMATURE GRAN ABSOLUTE AUTO 0.04 K/mm3 (0.00-0.10); IMMATURE GRAN PERCENT AUTO 0.5 % (<=1.0); LYMPHOCYTES ABSOLUTE AUTO 1.21 K/mm3 (1.18-3.74); LYMPHOCYTES PERCENT AUTO 15.6 % (19.3-51.7); MEAN CORPUSCULAR HEMOGLOBIN 29.7 pg (25.6-32.2); MEAN CORPUSCULAR HGB CONC 32.9 g/dl (32.2-35.5); MEAN CORPUSCULAR VOLUME 90.1 fl (79.4-94.8); MEAN PLATELET VOLUME 9.4 fl (9.4-12.3); MONOCYTES ABSOLUTE AUTO 1.26 K/mm3 (0.24-0.36); MONOCYTES PERCENT AUTO 16.2 % (4.7-12.5); NEUTROPHILS ABSOLUTE AUTO 5.21 K/mm3 (1.56-6.13); NEUTROPHILS PERCENT AUTO 67.2 % (34.0-71.1); PLATELET COUNT,PLT 332 K/mm3 (182-369); RED BLOOD CELL COUNT 4.55 M/mm3 (3.98-5.22); WHITE BLOOD CELL COUNT,WBC 7.76 K/mm3 (3.98-10.04)
[2023-01-20 09:25] LABS: HEMOGLOBIN 13.5 gm/dl (11.2-15.7)
[2023-01-20] MEDS: DULoxetine 30 MG Cap PO SCH (09:47)
[2023-01-20] MEDS: Enoxaparin 40 MG/0.4 ML Syringe SUBCUT SCH (09:48)
[2023-01-20] MEDS: OLANZapine 5 MG Tab PO SCH ×2 (09:48→20:41)
[2023-01-20] MEDS: Nystatin Topical Powder 15 GM Bottle TOP SCH ×3 (09:48→20:41)
[2023-01-20] MEDS: Docusate Sodium 100 MG Cap PO SCH ×2 (09:48→20:41)
[2023-01-20 09:49] LABS: A/G RATIO 0.8 (1-2); ALBUMIN 3.2 g/dl (3.4-5.0); ANION GAP 11.3 (5-15); BILIRUBIN TOTAL 0.5 mg/dL (0.2-1.0); BUN/CREATININE RATIO 23.8 (14-18); C-REACTIVE PROTEIN 1.9 mg/dL (<1.0); CALCIUM 8.6 mg/dL (8.5-10.1); CREATININE 0.8 mg/dL (0.55-1.02); EST CRCL DRUG DOSING (CG) 53.23 mL/min; POTASSIUM,K 4.3 mEq/L (3.5-5.1); PROTEIN TOTAL,TP 7.1 g/dl (6.4-8.2)
[2023-01-20] MEDS: Benzocaine/Cetylpyridinium/Menthol Lozenge MUCMEM PRN (12:42)
[2023-01-20] MEDS: guaiFENesin/Dextromethorphan 100-10 MG/5 ML Soln 5 ML Cup PO PRN (20:40)
[2023-01-20] MEDS: LORazepam 1 MG Tab PO PRN (20:41)
[2023-01-21] MEDS: Docusate Sodium 100 MG Cap PO SCH ×2 (09:51→23:10)
[2023-01-21] MEDS: Nystatin Topical Powder 15 GM Bottle TOP SCH ×3 (09:51→23:11)
[2023-01-21] MEDS: OLANZapine 5 MG Tab PO SCH ×2 (09:51→23:10)
[2023-01-21] MEDS: DULoxetine 30 MG Cap PO SCH (09:51)
[2023-01-21] MEDS: Enoxaparin 40 MG/0.4 ML Syringe SUBCUT SCH (09:52)
[2023-01-22] MEDS: Enoxaparin 40 MG/0.4 ML Syringe SUBCUT SCH (08:13)
[2023-01-22] MEDS: OLANZapine 5 MG Tab PO SCH ×2 (08:13→21:21)
[2023-01-22] MEDS: Nystatin Topical Powder 15 GM Bottle TOP SCH ×3 (08:13→21:21)
[2023-01-22] MEDS: Docusate Sodium 100 MG Cap PO SCH ×2 (08:13→21:21)
[2023-01-22] MEDS: DULoxetine 30 MG Cap PO SCH (08:13)
[2023-01-22] MEDS: Benzocaine/Cetylpyridinium/Menthol Lozenge MUCMEM PRN (18:36)
[2023-01-23] MEDS: Nystatin Topical Powder 15 GM Bottle TOP SCH ×3 (09:43→20:45)
[2023-01-23] MEDS: Enoxaparin 40 MG/0.4 ML Syringe SUBCUT SCH (09:44)
[2023-01-23] MEDS: DULoxetine 30 MG Cap PO SCH (09:44)
[2023-01-23] MEDS: OLANZapine 5 MG Tab PO SCH ×2 (09:44→20:49)
[2023-01-23] MEDS: Docusate Sodium 100 MG Cap PO SCH ×2 (09:44→20:49)
[2023-01-23] MEDS: LORazepam 1 MG Tab PO PRN (20:49)
[2023-01-23] MEDS: Benzocaine/Cetylpyridinium/Menthol Lozenge MUCMEM PRN (20:50)
[2023-01-24] MEDS: Enoxaparin 40 MG/0.4 ML Syringe SUBCUT SCH (09:55)
[2023-01-24] MEDS: Docusate Sodium 100 MG Cap PO SCH ×2 (09:55→20:27)
[2023-01-24] MEDS: DULoxetine 30 MG Cap PO SCH (09:55)
[2023-01-24] MEDS: OLANZapine 5 MG Tab PO SCH ×2 (09:56→20:30)
[2023-01-24] MEDS: Nystatin Topical Powder 15 GM Bottle TOP SCH ×3 (12:24→20:28)
[2023-01-24] MEDS: LORazepam 1 MG Tab PO PRN (20:27)
[2023-01-24] MEDS: Benzocaine/Cetylpyridinium/Menthol Lozenge MUCMEM PRN ×2 (20:27→22:40)
[2023-01-24] MEDS: guaiFENesin/Dextromethorphan 100-10 MG/5 ML Soln 5 ML Cup PO PRN (22:27)
[2023-01-25] MEDS ORDERED: LORazepam 1 MG Tab PO ONE (01:00)
[2023-01-25] MEDS: Benzocaine/Cetylpyridinium/Menthol Lozenge MUCMEM PRN ×2 (01:16→12:49)
[2023-01-25] MEDS: Nystatin Topical Powder 15 GM Bottle TOP SCH ×3 (09:16→21:51)
[2023-01-25] MEDS: OLANZapine 5 MG Tab PO SCH ×2 (09:16→21:49)
[2023-01-25] MEDS: DULoxetine 30 MG Cap PO SCH (09:16)
[2023-01-25] MEDS: Docusate Sodium 100 MG Cap PO SCH ×2 (09:16→21:50)
[2023-01-25] MEDS: Enoxaparin 40 MG/0.4 ML Syringe SUBCUT SCH (09:16)
[2023-01-25] MEDS: LORazepam 1 MG Tab PO PRN (15:06)
[2023-01-25 19:37] LABS: APPEARANCE,URINE CLEAR (Clear); BILIRUBIN,URINE NEGATIVE (Negative); COLOR,URINE YELLOW (Yellow); GLUCOSE,URINE NEGATIVE (Negative); KETONES,URINE NEGATIVE (Negative); LEUKOCYTE ESTERASE,URINE TRACE (Negative); NITRITE,URINE NEGATIVE (Negative); OCCULT BLOOD,URINE NEGATIVE (Negative); PH,URINE 5.5 (5.0-8.0); PROTEIN,URINE NEGATIVE (Negative); UROBILINOGEN,URINE 0.2 (0.2-1.0)
[2023-01-25 20:01] LABS: BACTERIA,URINE FEW /hpf (FEW); MUCUS,URINE MODERATE /hpf (FEW); RBC,URINE 0-5 /hpf (0-5); SQUAMOUS EPITHELIAL CELLS,UR 0-5 /hpf (0-5)
[2023-01-25] MEDS: guaiFENesin/Dextromethorphan 100-10 MG/5 ML Soln 5 ML Cup PO PRN (21:49)
[2023-01-26] MEDS: Enoxaparin 40 MG/0.4 ML Syringe SUBCUT SCH (09:55)
[2023-01-26] MEDS: DULoxetine 30 MG Cap PO SCH (09:56)
[2023-01-26] MEDS: LORazepam 1 MG Tab PO PRN ×2 (09:56→22:20)
[2023-01-26] MEDS: OLANZapine 5 MG Tab PO SCH ×2 (09:56→22:19)
[2023-01-26] MEDS: Docusate Sodium 100 MG Cap PO SCH ×2 (09:57→22:20)
[2023-01-26] MEDS: Nystatin Topical Powder 15 GM Bottle TOP SCH ×3 (09:57→22:34)
[2023-01-26] MEDS: guaiFENesin/Dextromethorphan 100-10 MG/5 ML Soln 5 ML Cup PO PRN (22:19)
[2023-01-27] MEDS: Docusate Sodium 100 MG Cap PO SCH (08:38)
[2023-01-27] MEDS: LORazepam 1 MG Tab PO PRN (08:39)
[2023-01-27] MEDS: OLANZapine 5 MG Tab PO SCH (08:40)
[2023-01-27] MEDS: DULoxetine 30 MG Cap PO SCH (08:40)
[2023-01-27] MEDS: Enoxaparin 40 MG/0.4 ML Syringe SUBCUT SCH (08:41)
[2023-01-27] MEDS: guaiFENesin/Dextromethorphan 100-10 MG/5 ML Soln 5 ML Cup PO PRN (08:41)
[2023-01-27] MEDS: Nystatin Topical Powder 15 GM Bottle TOP SCH (08:44)
[2023-01-27] MEDS ORDERED: LORazepam 1 MG Tab PO ONE (13:22)
== END 2023-01-27 14:15 | DRG 885 ==
LOC: JD.ED 08:32 → JD.MS 11-22 15:28 → JD.OB 01-25 12:26 → JD.MS 01-27 06:18 → JD.OB 01-27 06:23 → JD.MS 01-27 06:32 → JD.OB 01-27 06:36
PROVIDERS: ADMIT Internal Medicine; ATTEND Internal Medicine
DX: F20.0 Paranoid schizophrenia (principal); F03.C2 Unspecified dementia, severe, with psychotic disturbance; B35.9 Dermatophytosis, unspecified; F41.9 Anxiety disorder, unspecified; R62.7 Adult failure to thrive; Z59.00 Homelessness unspecified; Z79.899 Other long term (current) drug therapy
CPT/HCPCS: 0241U; 36415; 70450; 70450-26; 71045; 71045-26; 80048; 80053; 80143; 80179; 80306; 80307; 81001; 83735; 84443; 84484; 85025; 86140; 87086; 93005; 93010; 96372; 97162-GP; 97165-GO; 99285; 99285-25; A9270-GY; J1644; J1650; J2060; J2405; Q3014